=== PATIENT | female | born 2000 | race Caucasian/White ===

== ENCOUNTER 2023-02-27 12:19 | Emergency (ER) | payer MEDICAID ==
[~2023-02-27] VITALS: Ht 162.6 cm; Wt 72.9 kg
[2023-02-27] MEDS ORDERED: NORCO, ANEXSIA 5/325MG TABLET (HYDROcodone/ACETAMINOPHEN) PO ONE (16:40)
[2023-02-27] MEDS ORDERED: ISOVUE-370 76% 100ML VIAL As Ordered ONE (17:42)
[2023-02-27 17:44] LABS: VENOUS BASE EXCESS -0.1 (-2.0-2.0); VENOUS HCO3 26.5 MMOL/L (23.0-27.0); VENOUS O2 SATURATION 73.9 % (60.0-80.0); VENOUS PARTIAL PRESSURE CO2 50.9 mmHg (38.0-50.0); VENOUS PARTIAL PRESSURE O2 40.7 mmHg (30.0-50.0); VENOUS PH 7.334 UNITS (7.330-7.430); VENOUS STANDARD HCO3 23.9 MMOL/L
[2023-02-27 17:58] LABS: BASO % 0.5 % (0.0-1.0); EOS % 0.2 % (0.0-3.0); HEMATOCRIT 37.8 % (36.0-47.0); HEMOGLOBIN 12.1 g/dl (12.0-15.5); LYMPH # 1.9 10^3/uL (1.5-5.0); LYMPH % 21.5 % (24.0-44.0); MEAN CORPUSCULAR HEMOGLOBIN 28.4 pg (27.0-33.0); MEAN CORPUSCULAR VOLUME 88.7 fl (80.0-96.0); MONO # 0.6 10^3/uL (0.0-0.8); MONO % 6.2 % (2.0-8.0); NEUTROPHILS # 6.3 10^3/uL (1.5-8.5); NEUTROPHILS % 71.3 % (36.0-66.0); PLATELET COUNT, AUTOMATED 265 10^3/uL (150-450); RED BLOOD COUNT 4.26 10^6/uL (4.00-5.40); WHITE BLOOD COUNT 8.9 10^3/uL (4.0-10.0)
[2023-02-27 18:10] LABS: INR 1.05; PROTHROMBIN TIME 13.4 SECONDS (12.5-14.5)
[2023-02-27 18:11] LABS: PARTIAL THROMBOPLASTIN TIME 30.5 SECONDS (24.8-34.2)
[2023-02-27 18:23] LABS: CK-MB VALUE MASS < 1.0 NG/ML (<3.6); CPK CREATINE PHOSPHOKINASE 94 U/L (34-145); MB/CK RELATIVE INDEX 1.06 (< OR =4)
[2023-02-27] MEDS ORDERED: HYDR-3713 PO (19:48)
[2023-02-27] MEDS ORDERED: ELIQ5TAB PO (19:48)
[2023-02-27] MEDS ORDERED: APIXABAN 5 MG TAB (ELIQUIS) PO ONE (19:50)
[2023-02-27 20:00] VITALS: BP 111/62; TEMP 97.4; O2SAT 99
[2023-02-28 09:36] LABS: DRVV SCREEN 58.8 SECONDS; PTT LUPUS TYPE ANTICOAG SCREEN 1.45 (0-1.20)
[2023-02-28 09:37] LABS: DRVV CONFIRM 42.2 SECONDS; LUPUS CONFIRM RATIO 1.09; NORMALIZED RATIO 1.33 (0.00-1.20)
[2023-03-02 15:08] LABS: HEXAGONAL PHASE PHOSPHOLIPID 9 sec (0-11)
[2023-03-06 14:09] LABS: ANTI THROMBIN 3 ANTIGEN IMMUNO 93 % (72-124); ANTI THROMBIN 3 FUNCT ACTIVITY 135 % (75-135); CARDIOLIPIN IGA ANTIBODY <9 APL U/mL (0-11); CARDIOLIPIN IGG ANTIBODY <9 GPL U/mL (0-14); CARDIOLIPIN IGM ANTIBODY 9 MPL U/mL (0-12); PHOSPHOLIPIDS LEVEL 218 mg/dL (151-288); PROTEIN C FUNCTIONAL ACTIVITY 136 % (73-180); PROTEIN S FUNCTIONAL ACTIVITY 77 % (63-140)
== END 2023-02-27 20:01 | disposition home or self-care (01) ==
LOC: M ED 12:19
DX: I26.99 Other pulmonary embolism without acute cor pulmonale (principal); I45.10 Unspecified right bundle-branch block
CPT/HCPCS: 36415; 71275; 80047; 81240; 82550; 82553; 82803; 83880; 84311; 85025; 85300; 85301; 85303; 85305; 85598; 85610; 85613; 85730; 86147; 93005; 93041; 94760; 99284; Q9967

== ENCOUNTER → 2023-03-14 | Outpatient (CLI) | payer MEDICAID, OTHER ==
[~2023-03-14] MED LIST: ELIQ5TAB PO; HYDR-3713 PO
== END ==
LOC: M LAB 16:06
DX: Z02.0 Encounter for examination for admission to educational institution (principal)

== ENCOUNTER → 2024-05-09 | Outpatient (CLI) | payer OTHER ==
[2024-05-09 12:54] LABS: BASO # 0.1 10^3/uL (0.0-0.2); BASO % 0.9 % (0.0-1.0); EOS # 0.1 10^3/uL (0.0-0.5); EOS % 1.3 % (0.0-3.0); HEMATOCRIT 39.8 % (36.0-47.0); HEMOGLOBIN 12.9 g/dl (12.0-15.5); LYMPH % 36.4 % (24.0-44.0); MEAN CORPUSCULAR HEMOGLOBIN 29.3 pg (27.0-33.0); MEAN CORPUSCULAR HGB CONC 32.4 g/dl (32.0-36.5); MEAN CORPUSCULAR VOLUME 90.5 fl (80.0-96.0); MONO # 0.5 10^3/uL (0.0-0.8); MONO % 8.9 % (2.0-8.0); NEUTROPHILS # 2.9 10^3/uL (1.5-8.5); NEUTROPHILS % 51.8 % (36.0-66.0); PLATELET COUNT, AUTOMATED 275 10^3/uL (150-450); WHITE BLOOD COUNT 5.6 10^3/uL (4.0-10.0)
[2024-05-09 13:06] LABS: HEMOGLOBIN A1c 4.9 % (4.0-6.0)
[2024-05-09 13:19] LABS: FOLLICLE STIMULATING HORMONE 10.9 mIU/ML; THYROID STIMULATING HORMONE 1.272 uIU/ML (0.55-4.78)
[2024-05-09 13:20] LABS: FREE T4 1.09 NG/DL (0.89-1.76); LUTEINIZING HORMONE 6.2 mIU/ML
[2024-05-09 13:21] LABS: PROGESTERONE 0.5 NG/ML
[2024-05-12 13:17] LABS: INSULIN LEVEL 2.8 uIU/mL (<=18.4)
== END ==
LOC: M LAB 12:07
PROVIDERS: ATTEND Nurse Practitioner Family
DX: N92.6 Irregular menstruation, unspecified (principal)